=== PATIENT | female | born 1975 | race Caucasian/White ===

== ENCOUNTER 2017-05-23 08:18 | Emergency (ER) | payer BC, OTHER ==
[~2017-05-23] VITALS: Ht 165.1 cm; Wt 75.0 kg
[2017-05-23 08:19] VITALS: BP 149/93; PULSE 87; RESP 16; TEMP 98.7; O2SAT 98
[2017-05-23] MEDS ORDERED: PENI500T PO (08:40)
[2017-05-23] MEDS ORDERED: IBUP800T23 PO (08:40)
[2017-05-23] MEDS ORDERED: MAPA500T13 PO (08:40)
--- NOTE | 2017-05-23 08:44 | PD ---
HPI Chief Complaint: Oral / Dental Pain or Problem Time Seen by Provider: 08:36 Travel History International Travel<30 days: No Contact w/Intl Traveler<30days: No Traveled to known affect area: No History of Present Illness HPI 41-year-old female presents the emergency department with dental pain in the #12 tooth for the past 3 days. Patient states the pain radiates up into her right maxillary sinus. She has some mild swelling. No drainage. No fever chills or difficulty swallowing. Pain is currently in a 10. She has no known drug allergies. [facility] Past Medical History ?: Not Social History Alcohol Use: Yes Tobacco Use: Yes Substance Use: No Allergies-Medications (Allergen,Severity, Reaction): Coded Allergies: No Known Allergies (Unverified , 05/23/17) Review of Systems Except as stated in HPI: all other systems reviewed are Neg General / Constitutional: No: Fever Eyes: No: Visual changes HENT: Positive: Dental Difficulties, No: Headaches, Vertigo, Lightheadedness, Sore Throat, Rhinitis, Rhinorrhea, Congestion, Nosebleed, Neck Stiffness, Neck Pain, Gingival Bleeding, Ear Discharge, Earache Cardiovascular: No: Chest Pain or Discomfort Respiratory: No: Shortness of Breath Gastrointestinal: No: Abdominal Pain Genitourinary: No: Dysuria Musculoskeletal: No: Pain Skin: No Rash Neurologic: No: Weakness Psychiatric: No: Depression Endocrine: No: Polydipsia Hematologic/Lymphatic: No: Easy Bruising Physical Exam Narrative GENERAL: Patient appears in mild to moderate distress. SKIN: Warm and dry. Normal color. Normal turgor. No erythema. HEAD: Atraumatic. Normocephalic. EYES: Pupils equal and round. No scleral icterus. No injection or drainage. ENT: No nasal bleeding or discharge. Mucous membranes pink and moist. Patient has a bad #12 tooth with obvious deep caries. Patient has mild swelling to the right upper anterior jaw without obvious deep abscess. Pharynx is clear. Airway is patent. Uvula is midline. NECK: Trachea midline. Supple nontender without lymphadenopathy. CARDIOVASCULAR: Regular rate and rhythm. RESPIRATORY: No accessory muscle use. Clear to auscultation. Breath sounds equal bilaterally. MUSCULOSKELETAL: Extremities without clubbing, cyanosis, or edema. No obvious deformities. NEUROLOGICAL: Awake and alert. No obvious cranial nerve deficits. Motor grossly within normal limits. Five out of 5 muscle strength in the arms and legs. Normal speech. PSYCHIATRIC: Appropriate mood and affect; insight and judgment normal. Data Data Last Documented VS Vital Signs Date Time Temp Pulse Resp B/P (MAP) Pulse Ox O2 Delivery O2 Flow Rate FiO2 05/23/17 08:19 98.7 87 16 149/93 (111) 98 MDM Medical Decision Making Medical Screen Exam Complete: Yes Emergency Medical Condition: Yes Differential Diagnosis Dental caries. Dental abscess. Dental pain. Narrative Course Patient is treated with penicillin VK, 500 mg 4 times a day 10 days. Patient also given ibuprofen 800 mg 3 times daily with food #30. Patient also given acetaminophen 500 mg 2 tabs every 8 hours when necessary #60. Patient is given a list of the local dental resources. Patient can follow up if symptoms do not improve or worsen as needed. Diagnosis Primary Impression: Dental abscess Referrals: Dentist Patient Instructions: Dental Abscess (ED), General Instructions Additional Instructions: Patient is treated with penicillin VK, 500 mg 4 times a day 10 days. Patient also given ibuprofen 800 mg 3 times daily with food #30. Patient also given acetaminophen 500 mg 2 tabs every 8 hours when necessary #60. Patient is given a list of the local dental resources. Patient can follow up if symptoms do not improve or worsen as needed. Med/Other Pt SpecificInfo: Prescription(s) given Scripts Acetaminophen (Mapap Extra Strength) 500 Mg Tab 1000 MG PO Q8HR Y for PAIN, #60 TAB 0 Refills Prov: Jim Astudillo MD 05/23/17 Ibuprofen (Ibuprofen) 800 Mg Tab 800 MG PO Q8H Y for Pain/Inflammation, #30 TAB 0 Refills Prov: Jim Astudillo MD 05/23/17 Penicillin V Potassium (Penicillin V Potassium) 500 Mg Tab 500 MG PO Q6H for Infection for 10 Days, #40 TAB 0 Refills Prov: Jim Astudillo MD 05/23/17 Disposition: 01 DISCHARGE HOME Condition: Stable Zachary Cantrell May 23, 2017 08:44
== END 2017-05-23 08:50 | disposition home or self-care (01) ==
LOC: NEPK 08:18
DX: K04.7 Periapical abscess without sinus (principal)
CPT/HCPCS: 99283

== ENCOUNTER 2017-06-12 13:20 | Emergency (ER) | payer BC ==
[~2017-06-12] VITALS: Ht 165.1 cm; Wt 68.0 kg
[~2017-06-12 13:20] MED LIST: IBUP800T23 PO; MAPA500T13 PO; PENI500T PO
[2017-06-12 13:23] VITALS: BP 156/97; PULSE 83; RESP 14; TEMP 98.6; O2SAT 94
[2017-06-12] MEDS ORDERED: IBUP800T23 PO (15:10)
[2017-06-12] MEDS ORDERED: ULTR50TA5 PO (15:10)
[2017-06-12] MEDS ORDERED: CLIN1CAP5 PO (15:10)
--- NOTE | 2017-06-12 15:10 | PD ---
HPI Chief Complaint: Oral / Dental Pain or Problem Time Seen by Provider: 15:02 Travel History International Travel<30 days: No Contact w/Intl Traveler<30days: No Traveled to known affect area: No History of Present Illness HPI 41 year-old female presents to the emergency department for evaluation of left maxillary tooth pain. Patient states she has had a bad tooth for an extended amount of time. However pain has worsened acutely over the last 2-3 days. It radiates into her left cheek. She denies any new injury. No fever or chills. Patient is a constant, throbbing, 8 out of 10 pain. She has no other symptoms to report. PFSH Past Medical History Medical History: Denies Significant Hx ?: Unknown Social History Alcohol Use: Yes Tobacco Use: Yes Substance Use: No Allergies-Medications (Allergen,Severity, Reaction): Coded Allergies: No Known Allergies (Unverified , 05/23/17) Reported Meds & Prescriptions Reported Meds & Active Scripts Active Ultram (Tramadol HCl) 50 Mg Tab 50 Mg PO Q8H PRN Ibuprofen 800 Mg Tab 800 Mg PO Q8H PRN Clindamycin (Clindamycin HCl) 150 Mg Cap 300 Mg PO Q6H 10 Days Mapap Extra Strength (Acetaminophen) 500 Mg Tab 1,000 Mg PO Q8HR PRN Ibuprofen 800 Mg Tab 800 Mg PO Q8H PRN Penicillin V Potassium 500 Mg Tab 500 Mg PO Q6H 10 Days Review of Systems Except as stated in HPI: all other systems reviewed are Neg Physical Exam Narrative GENERAL: Well-nourished, well-developed email patient, in no acute distress SKIN: Focused skin assessment warm/dry. HEAD: Normocephalic. Tenderness elicited to palpation of the left maxillary sinus. No erythema or edema. EYES: No scleral icterus. No injection or drainage. DENTAL: No loose teeth. Generalized poor dentition. The left maxillary second molar is completely brown is significantly decayed. There is gingival erythema and edema. No appreciable abscess. No malocclusion. NECK: Supple, trachea midline. No JVD or lymphadenopathy. CARDIOVASCULAR: Regular rate and rhythm without murmurs, gallops, or rubs. RESPIRATORY: Breath sounds equal bilaterally. No accessory muscle use. MUSCULOSKELETAL: No cyanosis, or edema. BACK: Nontender without obvious deformity. No CVA tenderness. Data Data Last Documented VS Vital Signs Date Time Temp Pulse Resp B/P (MAP) Pulse Ox O2 Delivery O2 Flow Rate FiO2 06/12/17 15:25 06/12/17 13:23 98.6 83 14 94 Orders Orders Ed Discharge Order (06/12/17 15:10) MDM Medical Decision Making Medical Screen Exam Complete: Yes Emergency Medical Condition: Yes Medical Record Reviewed: Yes Differential Diagnosis Dental caries versus gingivitis versus pulpitis versus periodontal disease Narrative Course 41 year-old female presents to emergency department for evaluation of dental pain. Patient has generalized poor dentalgia. She does have a significantly decayed, brown left maxillary second molar. Patient will be started on oral antibiotics. She tells me she cannot take penicillin due to a previous reaction. She is counseled on care and encouraged follow-up with a dentist in a primary care provider. She agrees to return immediately with any acute worsening of symptoms. Diagnosis Primary Impression: Dentalgia Additional Impression: Gingivitis Referrals: Dentist Primary Care Physician Patient Instructions: Dental Abscess (ED), General Instructions Additional Instructions: Seek dental evaluation as soon as possible Follow-up with a primary care provider Return immediately with any acute worsening symptoms Med/Other Pt SpecificInfo: Prescription(s) given Scripts Tramadol (Ultram) 50 Mg Tab 50 MG PO Q8H Y for PAIN GREATER THAN 6, #20 TAB 0 Refills Prov: Yarelis Pugh 06/12/17 Ibuprofen (Ibuprofen) 800 Mg Tab 800 MG PO Q8H Y for Pain/Inflammation, #30 TAB 0 Refills Prov: Yarelis Pugh 06/12/17 Clindamycin (Clindamycin) 150 Mg Cap 300 MG PO Q6H for Infection for 10 Days, #80 CAP 0 Refills Prov: Yarelis Pugh 06/12/17 Disposition: 01 DISCHARGE HOME Condition: Stable Yarelis Puhg Jun 12, 2017 15:10
== END 2017-06-12 15:26 | disposition home or self-care (01) ==
LOC: NEPK 13:20
DX: K08.89 Other specified disorders of teeth and supporting structures (principal); K05.10 Chronic gingivitis, plaque induced; Z72.0 Tobacco use
CPT/HCPCS: 99284

== ENCOUNTER 2018-01-23 10:17 | Emergency (ER) | payer MEDICARE, OTHER ==
[~2018-01-23] VITALS: Ht 165.1 cm; Wt 75.0 kg
[~2018-01-23 10:17] MED LIST changes: +CLIN150C14 PO; +IBUP1TAB7 PO; -IBUP800T23 PO; +TRAM50 PO
[2018-01-23 10:22] VITALS: BP 174/101; PULSE 82; RESP 17; TEMP 98.4; O2SAT 99
--- NOTE | 2018-01-23 10:59 | PD ---
HPI Chief Complaint: Complaint Time Seen by Provider: 10:58 Travel History International Travel<30 days: No Contact w/Intl Traveler<30days: No Traveled to known affect area: No History of Present Illness HPI 42-year-old female with history of tobacco dependency, presents emergency department for evaluation of burning with urination, pelvic pressure, worsening over the last week. Patient denies any fever or chills. Denies any vaginal discharge or bleeding. States that she has had multiple UTIs in her health history and this feels consistent with that. She denies any hematuria. She has no trauma. Patient also states she has had cough and chest congestion worsening over the last 2-3 weeks. It is productive of yellow-green cough. She does smoke tobacco cigarettes. She denies any pain. She has no other symptoms to report. PFSH Past Medical History ?: Not Past Surgical History Hysterectomy: Yes Neurologic Surgery: Yes (NECK SURGERY) Social History Alcohol Use: Yes (OCC) Tobacco Use: Yes Substance Use: No Allergies-Medications (Allergen,Severity, Reaction): Coded Allergies: penicillin G (Verified Allergy, Unknown, 01/23/18) Reported Meds & Prescriptions Reported Meds & Active Scripts Active Proair Hfa 8.5 GM Inh (Albuterol Sulfate) 90 Mcg/Act Aer 2 Puff INH Q4HR PRN 108 mcg/actuation Prednisone 50 Mg Tab 50 Mg PO DAILY 5 Days Doxycycline Hyclate 100 Mg Cap 100 Mg PO BID Review of Systems Except as stated in HPI: all other systems reviewed are Neg Physical Exam Narrative GENERAL: Well-nourished female patient in no acute distress SKIN: Focused skin assessment warm/dry. HEAD: Atraumatic. Normocephalic. EYES: Pupils equal and round. No scleral icterus. No injection or drainage. ENT: No nasal bleeding or discharge. Mucous membranes pink and moist. NECK: Trachea midline. No JVD. CARDIOVASCULAR: Regular rate and rhythm. No murmur appreciated. RESPIRATORY: No accessory muscle use. Scattered rhonchi, intermittent inspiratory wheeze, to auscultation. Breath sounds equal bilaterally. GASTROINTESTINAL: Abdomen soft, non-tender, nondistended. Hepatic and splenic margins not palpable. MUSCULOSKELETAL: No obvious deformities. No clubbing. No cyanosis. No edema. NEUROLOGICAL: Awake and alert. No obvious cranial nerve deficits. Motor grossly within normal limits. Normal speech. PSYCHIATRIC: Appropriate mood and affect; insight and judgment normal. Data Data Last Documented VS Vital Signs Date Time Temp Pulse Resp B/P (MAP) Pulse Ox O2 Delivery O2 Flow Rate FiO2 01/23/18 10:22 98.4 82 17 174/101 (125) 99 Orders Orders Urinalysis - C+S If Indicated (01/23/18 11:01) Ed Urine Pregnancytest Poc (01/23/18 11:01) Chest, Single Ap (01/23/18 ) Dexamethasone Inj (Decadron Inj) (01/23/18 11:15) Albuterol-Ipratropium Neb (Duoneb Neb) (01/23/18 11:15) Ed Discharge Order (01/23/18 11:52) Labs Laboratory Tests Test 01/23/18 11:13 Urine Color YELLOW Urine Turbidity HAZY Urine pH 7.5 Urine Specific [place] 1.013 Urine Protein NEG mg/dL Urine Glucose (UA) NEG mg/dL Urine Ketones NEG mg/dL Urine Occult Blood NEG Urine Nitrite NEG Urine Bilirubin NEG Urine Urobilinogen LESS THAN 2.0 MG/DL Urine Leukocyte Esterase NEG Urine RBC 1 /hpf Urine WBC LESS THAN 1 /hpf Urine Squamous Epithelial Cells 12 /hpf Urine Bacteria FEW /hpf Urine Mucus FEW /lpf Microscopic Urinalysis Comment CULT NOT INDICATED MDM Medical Decision Making Medical Screen Exam Complete: Yes Emergency Medical Condition: Yes Medical Record Reviewed: Yes Differential Diagnosis Dysuria versus cystitis versus vaginitis versus urethritis Pneumonia versus influenza versus COPD versus COPD exacerbation versus bronchitis Narrative Course 42-year-old female presents emergency department for evaluation. Patient appears nontoxic. Her vital signs are stable. Patient is given DuoNeb and Decadron. She is counseled on smoking cessation. Laboratory Tests Test 01/23/18 11:13 Urine Color YELLOW Urine Turbidity HAZY Urine pH 7.5 Urine Specific [place] 1.013 Urine Protein NEG mg/dL Urine Glucose (UA) NEG mg/dL Urine Ketones NEG mg/dL Urine Occult Blood NEG Urine Nitrite NEG Urine Bilirubin NEG Urine Urobilinogen LESS THAN 2.0 MG/DL Urine Leukocyte Esterase NEG Urine RBC 1 /hpf Urine WBC LESS THAN 1 /hpf Urine Squamous Epithelial Cells 12 /hpf Urine Bacteria FEW /hpf Urine Mucus FEW /lpf Microscopic Urinalysis Comment CULT NOT INDICATED Last Impressions Chest X-Ray 01/23/18 0000 Signed Impressions: CONCLUSION: 1. No acute cardiopulmonary disease. Findings are reviewed. Discussed the patient my attending physician. She will be discharged home to follow-up with a primary care provider. She agrees to return immediately with acute worsening symptoms. Diagnosis Primary Impression: Dysuria Additional Impressions: COPD exacerbation Tobacco abuse Referrals: Primary Care Physician Patient Instructions: Cigarette Smoking and Your Health (GEN), General Instructions Additional Instructions: Stop smoking tobacco cigarettes Follow up with a primary care provider Ensure adequate hydration Return to ED with acute worsening of symptoms Med/Other Pt SpecificInfo: Prescription(s) given Scripts Albuterol 8.5 GM Inh (Proair Hfa 8.5 GM Inh) 90 Mcg/Act Aer 2 PUFF INH Q4HR Y for SHORTNESS OF BREATH, #1 INHALER 0 Refills 108 mcg/actuation Prov: Yarelis Pugh 01/23/18 Prednisone (Prednisone) 50 Mg Tab 50 MG PO DAILY for 5 Days, #5 TAB 0 Refills Prov: Yarelis Pugh 01/23/18 Doxycycline Hyclate (Doxycycline Hyclate) 100 Mg Cap 100 MG PO BID for Infection, #20 CAP 0 Refills Prov: Yarelis Pugh 01/23/18 Disposition: 01 DISCHARGE HOME Condition: Stable Yarelis Pugh January 23, 2018 10:59
[2018-01-23] MEDS ORDERED: DEXAMETHASONE SOD PHOS 4 MG/ML VIAL IM ONE (11:15)
[2018-01-23] MEDS ORDERED: RESP: ALBUTEROL 2.5 MG/IPRATROPIUM 0.5 MG NEB (SCH) NEB ONE (11:15)
--- NOTE | 2018-01-23 11:15 | RADRPT ---
EXAM DATE: 01/23/2018 11:12 AM EDT AGE/SEX: 42 years / Female INDICATIONS: Shortness of breath and cough. CLINICAL DATA: This is the patient's initial encounter. Patient reports that signs and symptoms have been present for 1 month and indicates a pain score of 0/10. MEDICAL/SURGICAL HISTORY: None. . cervical spine. COMPARISON: No prior [facility] exams available for comparison. FINDINGS: A single AP view of the chest demonstrates the lungs to be symmetrically aerated without evidence of mass, infiltrate or effusion. The cardiomediastinal contours are unremarkable. Fixation hardware in the cervicothoracic junction. Osseous structures are intact. CONCLUSION: 1. No acute cardiopulmonary disease. Electronically signed by: Santhosh Lundberg MD 01/23/2018 11:13 AM EDT
[2018-01-23 11:40] LABS: BACTERIA, URINE FEW /hpf; BILIRUBIN, URINE NEG (NEG); BLOOD, URINE NEG (NEG); GLUCOSE,URINE NEG (NEG); KETONE, URINE NEG (NEG); MUCUS URINE FEW /lpf (OCC); NITRITE,URINE NEG (NEG); PH, URINE 7.5 (5.0-8.5); SQUAMOUS EPITHELIAL CELL URINE 12 /hpf (0-5); URINE COLOR YELLOW (YELLW/STRAW); URINE LEUKOCYTE ESTERASE NEG (NEG)
[2018-01-23] MEDS ORDERED: DOXY100C PO (11:54)
[2018-01-23] MEDS ORDERED: ALBUAER3 INH (11:54)
[2018-01-23] MEDS ORDERED: PRED50 PO (11:54)
== END 2018-01-23 12:04 | disposition home or self-care (01) ==
LOC: NEPE 10:17
DX: R30.0 Dysuria (principal); J44.1 Chronic obstructive pulmonary disease with (acute) exacerbation; F17.210 Nicotine dependence, cigarettes, uncomplicated
CPT/HCPCS: 71045; 81001; 84703; 94664; 96372; 99284; J1100

== ENCOUNTER 2018-07-09 02:41 | Inpatient (IN) ==
--- NOTE | 2018-07-09 04:35 | ED ---
HPI General Chief complaint: Abdominal Pain Stated complaint: Abd pain/N/D/V Time Seen by Provider: 07/09/18 04:11 History of Present Illness HPI narrative: Patient is a 42 yo female presenting with abdominal pain, bloating, diarrhea, nausea, and vomiting. Patient reports that over the last 5-6 months she has been experiencing abdominal discomfort/distention and loose stools. Over the last 5 days her symptoms significantly worsened, with significant epigastric tenderness, nausea, vomiting, and frequent diarrhea associated with any food intake. Her pain is now 10/10 on the pain scale and associated with SOB due to discomfort. She notes that dairy is a trigger for her symptoms. She has seen some blood on the toilet paper when wiping but believes this to be due to irritation related to frequent bowel movements, and has not seen any blood mixed into her stool. Patient also reports some urinary discomfort but denies increased urgency or frequency. She denies history of chronic GI issues but has a family history of IBS. She has a history of anxiety though she has not been treated medically for this for several years. Related Data Home Medications Medication Instructions Recorded Confirmed gabapentin 300 mg PO TID 07/09/18 07/09/18 Allergies Allergy/AdvReac Type Severity Reaction Status Date / Time penicillin G Allergy Unknown Verified 01/23/18 10:22 Review of Systems Constitutional Reports chills, Denies fever(s) and Reports poor appetite Eyes Denies change in vision ENT Denies headache(s) and Denies nasal congestion Cardiovascular Denies chest pain Respiratory Reports dyspnea and Reports wheezing Gastrointestinal Denies abdominal pain, Reports bloating, Reports change in stool character, Reports cramping, Reports diarrhea, Reports loose stools, Reports nausea and Reports vomiting Genitourinary Denies difficulty voiding and Reports dysuria Musculoskeletal Denies myalgias Integumentary/Breasts Denies rash Neurologic Denies headache(s) Psychiatric Denies depression Endocrine Denies polyuria Hematologic/Lymphatic Denies easy bruising PMF Medical History Medical History Chronic back pain (Acute) H/O: hysterectomy (Acute) Patient denies medical problems (Acute) Surgical History Surgical History History of cholecystectomy (Acute) Social History Social History Substance History: No History of Abuse and Active Abuse Second Hand Smoke Exposure: No Smoking Status: Current every day smoker Tobacco Type: Cigarettes Packs Per Day: 0.5 Cigarettes Per Day: 10.0 How Often Do You Have a Drink Containing Alcohol: 4 or more times a week Recent Travel in [facility] within the Last 8 Weeks: No Recent Out of Country Travel within the Last 8 Weeks: No Substance Abuse Detail Marijuana: Substance Use Status: Active Route Used Substance Abuse: Inhalation Reason for Use: Calm Down and Get High Immunization History Tetanus Immunization: Unsure Exam Const General: cooperative, well developed and anxious Nutritional Appearance: well nourished Orientation: alert, awake and oriented x3 HENMT Head: normocephalic and atraumatic Nose: no nasal discharge and no epistaxis Mouth: moist mucous membranes Eyes Sclera: normal sclerae Pupils: PERRL Neck Neck: trachea midline and no JVD Resp Effort & Inspection: no use of accessory muscles Auscultation: wheezes scattered wheezes Cardio Rate: regular rate Rhythm: regular rhythm Heart Sounds: no murmurs GI Inspection: non-distended Palpation: soft, no hepatosplenomegaly, no guarding, not rigid and tender in the epigastrum; not in the LLQ, not in the RLQ, not in the LUQ, not in the RUQ, not at McBurney's point, not suprapubicly, Davison's sign negative and with no rebound tenderness Auscultation: normal bowel sounds Skin General: dry skin (warm) Neuro General: alert, awake, oriented x3 and other (Grossly nonfocal.) Speech: speech normal Motor: no movement abnormalities noted Extrem General: normal to inspection, no calf tenderness, no clubbing, no cyanosis and no edema Psych Mood: anxious mood Affect: anxious affect Judgment: judgment good Course Initial Documented Vital Signs Temperature 98 F 07/09/18 03:29 Pulse Rate 82 07/09/18 03:29 Respiratory Rate 16 07/09/18 03:29 Blood Pressure 168/90 H 07/09/18 03:29 Pulse Oximetry 98 07/09/18 03:29 Last Documented Vital Signs Temperature 98.3 F 07/09/18 04:12 Pulse Rate 77 07/09/18 06:24 Respiratory Rate 16 07/09/18 06:24 Blood Pressure 143/94 H 07/09/18 06:24 Pulse Oximetry 99 07/09/18 06:24 Medical Decision Making [facility] Narrative Medical decision making narrative: I, Dr. Dorman, have reviewed the medical student's documentation, and I am in agreement, met with the patient face to face, made the diagnosis, and the medical decision making was done by me. The patient was initially evaluated by Yamilex, the [facility]. Please see their complete history and physical. *My assessment and Findings: The patient presents with a history of abdominal pain that the patient reports has been present for the last 5-6 months. The patient reports that over the last 5 days his symptoms have worsened. She reports that she has had 5-6 episodes of diarrhea daily. She reports occasionally having vomiting. She reports that she last vomited yesterday. The patient denies ever having colonoscopy previously. The patient reports a recent history of daily alcohol intake of 1 pint of liquor daily. She has been reportedly drinking heavily since moving to the area and not establishing with a physician for her chronic pain. She reports that she is self-medicating for her chronic back pain. During the course of the patient's emergency department visit, the patient's history, examination, and differential diagnosis were reviewed with the patient. The patient was placed on a bus monitor with oximetry and frequent blood pressure monitoring. The patient had IV access obtained and blood work sent for analysis. The patient was initially provided DuoNeb x1, however after the DuoNeb was started the patient reported having increased anxiety and developed a panic attack. The patient was given Ativan 1 mg IV. The patient was provided Zofran 4 mg IV, normal saline 1 L IV fluid bolus which after lactic acid was noted to be elevated was repeated x1. The patient's diagnostic studies were reviewed and remarkable for A white count of 10.5, hemoglobin 16.3, platelets 270 with neutrophils 83.6, PT 12.4, INR 1.2 , PTT 29.3, chemistry is remarkable for a lactic acid of 2.4 which will be repeated after IV fluids, calcium 8.3, total bilirubin 1.1, magnesium 1.7, AST 681, ALT 379, alk phos 122, troponin I is less than 0.02, C-reactive protein is less than 0.29, lipase within normal limits at 203. Urinalysis shows large leukocyte esterase many bacteria small occult blood positive nitrate. The patient was given Rocephin 1 g IV. Chest x-ray revealed prominent hepatic steatosis, no other acute findings in the abdomen and pelvis. The patient is status post cholecystectomy. The patient was reexamined and was reportedly feeling improved. The patient will be started on oral rehydration therapy. Differential Diagnosis Differential Diagnosis: gastritis, gastroenteritis, pancreatitis, cholecystitis , irritable bowel syndrome, inflammatory bowel disease, urinary tract infection , pneumonia Lab Data Result diagrams: 07/09/18 04:30 07/09/18 04:30 POC Results POC Urine Results Negative Lab Results 07/09/18 07/09/18 07/09/18 Range/Units 04:18 04:30 04:30 WBC 10.5 (4.0-11.0) th/mm3 RBC 5.08 (4.00-5.30) mil/mm3 Hgb 16.3 H (11.6-15.3) gm/dL Hct 47.8 H (35.0-46.0) % MCV 94.2 (80.0-100.0) fL MCH 32.0 (27.0-34.0) pg MCHC 34.0 (32.0-36.0) % RDW 13.1 (11.6-17.2) % Plt Count 270 (150-450) th/mm3 MPV 9.2 (7.0-11.0) fL Neut % (Auto) 83.6 H (16.0-70.0) % Lymph % (Auto) 12.6 (9.0-44.0) % [place] % (Auto) 2.9 (0.0-8.0) % Eos % (Auto) 0.2 (0.0-4.0) % Baso % (Auto) 0.7 (0.0-2.0) % Neut # (Auto) 8.8 H (1.8-7.7) th/mm3 Lymph # (Auto) 1.3 (1.0-4.8) th/mm3 [place] # (Auto) 0.3 (0.0-0.9) th/mm3 Eos # (Auto) 0.0 (0.0-0.4) th/mm3 Baso # (Auto) 0.1 (0.0-0.2) th/mm3 WBC Differential . Differential Comment Auto diff final ESR (0-20) mm/hr PT 12.4 H (9.8-11.6) sec INR 1.2 Ratio APTT 29.3 (23.4-31.7) sec Sodium (136-145) meq/L Potassium (3.5-5.1) meq/L Chloride (98-107) meq/L Carbon Dioxide (21.0-32.0) meq/L Anion Gap (5-15) meq/L BUN (7-18) mg/dL Creatinine (0.50-1.00) mg/dL Estimated GFR (>89) mL/min POC Glucose 102 (68-110) mg/dl Random Glucose (74-106) mg/dL Lactic Acid (0.4-2.0) mmol/L Calcium (8.5-10.1) mg/dL Magnesium (1.5-2.5) mg/dL Total Bilirubin (0.2-1.0) mg/dL AST (15-37) U/L ALT (10-53) U/L Alkaline Phosphatase (45-117) U/L Troponin I (0.02-0.05) ng/mL C-Reactive Protein (0.00-0.30) mg/dL Total Protein (6.4-8.2) g/dL Albumin (3.4-5.0) g/dL Lipase (73-393) U/L Urine Color (Yellw/Straw) Urine Clarity (Clear) Urine pH (5.0-8.5) Ur Specific [place] (1.002-1.035) Urine Protein (Neg-Trace) mg/dL Urine Glucose (UA) (Negative) mg/dL Urine Ketones (Negative) mg/dL Urine Occult Blood (Negative) Urine Nitrate (Negative) Urine Bilirubin (Negative) Urine Urobilinogen (Less than 2) mg/dL Ur Leukocyte Esterase (Negative) Urine RBC (0-3) /hpf Urine WBC (0-5) /hpf Ur Squamous Epith Cells (0-5) /hpf Urine Bacteria (None) /hpf Urine Mucus (Occasional) /lpf Urine Yeast (None) /hpf Micro UA Comment Ur Microscopic Review Urine Culture Comments 07/09/18 07/09/18 07/09/18 Range/Units 04:30 04:30 05:00 WBC (4.0-11.0) th/mm3 RBC (4.00-5.30) mil/mm3 Hgb (11.6-15.3) gm/dL Hct (35.0-46.0) % MCV (80.0-100.0) fL MCH (27.0-34.0) pg MCHC (32.0-36.0) % RDW (11.6-17.2) % Plt Count (150-450) th/mm3 MPV (7.0-11.0) fL Neut % (Auto) (16.0-70.0) % Lymph % (Auto) (9.0-44.0) % [place] % (Auto) (0.0-8.0) % Eos % (Auto) (0.0-4.0) % Baso % (Auto) (0.0-2.0) % Neut # (Auto) (1.8-7.7) th/mm3 Lymph # (Auto) (1.0-4.8) th/mm3 [place] # (Auto) (0.0-0.9) th/mm3 Eos # (Auto) (0.0-0.4) th/mm3 Baso # (Auto) (0.0-0.2) th/mm3 WBC Differential Differential Comment ESR 1 (0-20) mm/hr PT (9.8-11.6) sec INR Ratio APTT (23.4-31.7) sec Sodium 137 (136-145) meq/L Potassium 3.9 (3.5-5.1) meq/L Chloride 100 (98-107) meq/L Carbon Dioxide 25.5 (21.0-32.0) meq/L Anion Gap 12 (5-15) meq/L BUN 11 (7-18) mg/dL Creatinine 0.69 (0.50-1.00) mg/dL Estimated GFR Greater than 89 (>89) mL/min POC Glucose (68-110) mg/dl Random Glucose 100 (74-106) mg/dL Lactic Acid 2.4 H (0.4-2.0) mmol/L Calcium 8.3 L (8.5-10.1) mg/dL Magnesium 1.7 (1.5-2.5) mg/dL Total Bilirubin 1.1 H (0.2-1.0) mg/dL AST 681 H (15-37) U/L ALT 379 H (10-53) U/L Alkaline Phosphatase 122 H (45-117) U/L Troponin I Less than 0.02 L (0.02-0.05) ng/mL C-Reactive Protein Less than 0.29 (0.00-0.30) mg/dL Total Protein 7.2 (6.4-8.2) g/dL Albumin 3.9 (3.4-5.0) g/dL Lipase 203 (73-393) U/L Urine Color (Yellw/Straw) Urine Clarity (Clear) Urine pH (5.0-8.5) Ur Specific [place] (1.002-1.035) Urine Protein (Neg-Trace) mg/dL Urine Glucose (UA) (Negative) mg/dL Urine Ketones (Negative) mg/dL Urine Occult Blood (Negative) Urine Nitrate (Negative) Urine Bilirubin (Negative) Urine Urobilinogen (Less than 2) mg/dL Ur Leukocyte Esterase (Negative) Urine RBC (0-3) /hpf Urine WBC (0-5) /hpf Ur Squamous Epith Cells (0-5) /hpf Urine Bacteria (None) /hpf Urine Mucus (Occasional) /lpf Urine Yeast (None) /hpf Micro UA Comment Ur Microscopic Review Urine Culture Comments 07/09/18 07/09/18 Range/Units 05:00 06:40 WBC (4.0-11.0) th/mm3 RBC (4.00-5.30) mil/mm3 Hgb (11.6-15.3) gm/dL Hct (35.0-46.0) % MCV (80.0-100.0) fL MCH (27.0-34.0) pg MCHC (32.0-36.0) % RDW (11.6-17.2) % Plt Count (150-450) th/mm3 MPV (7.0-11.0) fL Neut % (Auto) (16.0-70.0) % Lymph % (Auto) (9.0-44.0) % [place] % (Auto) (0.0-8.0) % Eos % (Auto) (0.0-4.0) % Baso % (Auto) (0.0-2.0) % Neut # (Auto) (1.8-7.7) th/mm3 Lymph # (Auto) (1.0-4.8) th/mm3 [place] # (Auto) (0.0-0.9) th/mm3 Eos # (Auto) (0.0-0.4) th/mm3 Baso # (Auto) (0.0-0.2) th/mm3 WBC Differential Differential Comment ESR (0-20) mm/hr PT (9.8-11.6) sec INR Ratio APTT (23.4-31.7) sec Sodium (136-145) meq/L Potassium (3.5-5.1) meq/L Chloride (98-107) meq/L Carbon Dioxide (21.0-32.0) meq/L Anion Gap (5-15) meq/L BUN (7-18) mg/dL Creatinine (0.50-1.00) mg/dL Estimated GFR (>89) mL/min POC Glucose (68-110) mg/dl Random Glucose (74-106) mg/dL Lactic Acid 2.6 H (0.4-2.0) mmol/L Calcium (8.5-10.1) mg/dL Magnesium (1.5-2.5) mg/dL Total Bilirubin (0.2-1.0) mg/dL AST (15-37) U/L ALT (10-53) U/L Alkaline Phosphatase (45-117) U/L Troponin I (0.02-0.05) ng/mL C-Reactive Protein (0.00-0.30) mg/dL Total Protein (6.4-8.2) g/dL Albumin (3.4-5.0) g/dL Lipase (73-393) U/L Urine Color Yellow (Yellw/Straw) Urine Clarity Cloudy H (Clear) Urine pH 6.0 (5.0-8.5) Ur Specific [place] 1.006 (1.002-1.035) Urine Protein Negative (Neg-Trace) mg/dL Urine Glucose (UA) Negative (Negative) mg/dL Urine Ketones Negative (Negative) mg/dL Urine Occult Blood Small H (Negative) Urine Nitrate Positive H (Negative) Urine Bilirubin Negative (Negative) Urine Urobilinogen Less than 2 (Less than 2) mg/dL Ur Leukocyte Esterase Large H (Negative) Urine RBC 2 (0-3) /hpf Urine WBC 5 (0-5) /hpf Ur Squamous Epith Cells 10 (0-5) /hpf Urine Bacteria Many H (None) /hpf Urine Mucus Few H (Occasional) /lpf Urine Yeast Few H (None) /hpf Micro UA Comment Culture indicated Ur Microscopic Review Not Reportable Urine Culture Comments Culture indicated Imaging Data Radiologist's impression: Abdomen/Pelvis CT 07/09/18 04:44 CONCLUSION: 1. Prominent hepatic steatosis. 2. No acute findings in the abdomen and pelvis. Chest X-Ray 07/09/18 06:39 CONCLUSION: No acute cardiopulmonary disease identified. Discharge Plan Physicians Team ED Provider: Nicole Dorman Primary Care Provider: UNKNOWN, Rxs /Orders / Referrals /Forms Prescriptions: No Action gabapentin 300 mg Capsule 300 mg PO TID RF: 0 Status ED Status: With Doctor
[2018-07-09] MEDS ORDERED: Sod Chloride 0.9% Inj 1,000 ML IV.SIG ONE ×2 (05:00→06:06)
[2018-07-09 05:12] LABS: Baso # (Auto) 0.1 th/mm3 (0.0-0.2); Baso % (Auto) 0.7 % (0.0-2.0); Eos % (Auto) 0.2 % (0.0-4.0); Hematocrit 47.8 % (35.0-46.0); Hemoglobin 16.3 gm/dL (11.6-15.3); Lymph # (Auto) 1.3 th/mm3 (1.0-4.8); Lymph % (Auto) 12.6 % (9.0-44.0); Mean Corpuscular Volume 94.2 fL (80.0-100.0); Mean Platelet Volume 9.2 fL (7.0-11.0); Mono # (Auto) 0.3 th/mm3 (0.0-0.9); Mono % (Auto) 2.9 % (0.0-8.0); Neut # (Auto) 8.8 th/mm3 (1.8-7.7); Neut % (Auto) 83.6 % (16.0-70.0); Platelet Count 270 th/mm3 (150-450); Red Blood Count 5.08 mil/mm3 (4.00-5.30); Red Cell Distribution Width 13.1 % (11.6-17.2); White Blood Count 10.5 th/mm3 (4.0-11.0)
[2018-07-09 05:23] LABS: Activated Partial Thrombo Time 29.3 sec (23.4-31.7); INR 1.2 Ratio; Prothrombin Time 12.4 sec (9.8-11.6)
[2018-07-09 05:25] LABS: Bacteria,Urine Many /hpf; Bilirubin,Urine Negative (Negative); Clarity,Urine Cloudy (Clear); Color,Urine Yellow (Yellw/Straw); Glucose,Urine (UA) Negative (Negative); Leukocyte Esterase,Urine Large (Negative); Mucus,Urine Few /lpf (Occasional); Nitrite,Urine Positive (Negative); Specific Gravity,Urine 1.006 (1.002-1.035); Squamous Epithelial Cell,Urine 10 /hpf (0-5)
[2018-07-09 05:41] LABS: Alkaline Phosphatase 122 U/L (45-117); Total Protein 7.2 g/dL (6.4-8.2)
[2018-07-09 05:54] LABS: Alanine Aminotransferase 379 U/L (10-53); Albumin 3.9 g/dL (3.4-5.0); Anion Gap 12 meq/L (5-15); Aspartate Aminotransferase 681 U/L (15-37); Blood Urea Nitrogen 11 mg/dL (7-18); Calcium 8.3 mg/dL (8.5-10.1); Carbon Dioxide 25.5 meq/L (21.0-32.0); Chloride 100 meq/L (98-107); Glomerular Filtration Rate Greater Than 89 mL/min (>89); Glucose,Random 100 mg/dL (74-106); Lipase 203 U/L (73-393); Magnesium 1.7 mg/dL (1.5-2.5); Sodium 137 meq/L (136-145)
[2018-07-09 05:55] LABS: Potassium 3.9 meq/L (3.5-5.1)
--- NOTE | 2018-07-09 06:27 | CT ---
EXAM DATE: 07/09/2018 6:15 AM EST AGE/SEX: 42 years / Female INDICATIONS: Abdominal pain. CLINICAL DATA: This is the patient's initial encounter. Patient reports that signs and symptoms have been present for 1 day and indicates a pain score of 7/10. MEDICAL/SURGICAL HISTORY: None. Hysterectomy. ORAL CONTRAST: No oral contrast ingested. RADIATION DOSE: 6.91 CTDI (mGy) COMPARISON: . TECHNIQUE: Multiple contiguous axial images were obtained through the abdomen and pelvis following b olus infusion of 96 ml Omnipaque 350 (iohexol) nonionic water-soluble contrast as a single exam dos e. No oral contrast ingested. Using automated exposure control and adjustment of the mA and/or kV ac cording to patient size, radiation dose was kept as low as reasonably achievable to obtain optimal di agnostic quality images. DICOM format image data is available electronically for review and comparis on. FINDINGS: Lower Lungs: The visualized lower lungs are clear. Liver: Moderate severity diffuse hypodensity of the liver indicating hepatic steatosis. Status post c holecystectomy. Spleen: Homogeneous density without enlargement. Pancreas: Unremarkable without mass or calcification. Kidneys: Normal in size and shape. No evidence of mass or hydronephrosis. Adrenal Glands: Unremarkable. Aorta: The aorta and proximal iliac vessels are grossly unremarkable without aneurysmal dilation. Bowel/Mesentery: No evidence of bowel dilatation. No free air or free fluid. Appendix within normal limits. Abdominal Wall: Intact. Retroperitoneum: No evidence of adenopathy in the retrocrural, para-aortic, or deep pelvic regions. Bladder: Contours are smooth. Reproductive Organs: No abnormal masses or calcifications seen. Inguinal: The inguinal region is unremarkable without evidence of adenopathy. Bony Structures: Unremarkable. CONCLUSION: 1. Prominent hepatic steatosis. 2. No acute findings in the abdomen and pelvis. Electronically signed by: Negrito Solomon MD 07/09/2018 6:25 AM EST
--- NOTE | 2018-07-09 06:56 | XR ---
EXAM DATE: 07/09/2018 6:52 AM EST AGE/SEX: 42 years / Female INDICATIONS: Abdominal pain. CLINICAL DATA: This is the patient's initial encounter. Patient reports that signs and symptoms have been present for 1 day and indicates a pain score of 0/10. MEDICAL/SURGICAL HISTORY: None. Fusion, cervical. Hysterectomy. COMPARISON: No prior exams available for comparison. FINDINGS: Single AP view of the chest. The lungs are clear. Cardiomediastinal silhouette within nor mal limits. No evidence of pleural effusion or pneumothorax. CONCLUSION: No acute cardiopulmonary disease identified. Electronically signed by: Negrito Solomon MD 07/09/2018 6:54 AM EST
[2018-07-09] MEDS ORDERED: Morphine Inj 4 MG/ML Vial IV.PUSH ONE (07:55)
[2018-07-09] MEDS ORDERED: Acetaminophen 325 MG Tablet PO PRN (08:32)
[2018-07-09] MEDS ORDERED: Haloperidol Inj 5 MG/ML Ampul IV.PUSH PRN (08:36)
--- NOTE | 2018-07-09 08:47 | P.HP ---
History of Present Illness Primary Care Physician: UNKNOWN History of Present Illness: 42-year-old female presented to the ED for evaluation of worsening abdominal pain and diarrhea 5-6 times a day. Patient states over the past 5-6 months after receiving treatment with various antibiotics she has been having consistently abdominal distention and diarrhea. However, patient states she has not receiving antibiotics recently. She also reports urinary frequency, dysuria. She denies any febrile episode. Patient's admits drinking 1 pint of alcohol daily, and smokes half a pack of cigarettes. In the ED, CT abdomen revealed hepatic steatosis otherwise unremarkable. Abnormal lab include elevated lactic acid. She denies any GI bleed. Inpatient Certification: I certify that the inpatient services were ordered in accordance with Medicare regulations governing the order. This includes certification that hospital inpatient services are reasonable and necessary and in the case of services not specified as inpatient-only under 42 CFR 419.22(n), that they are appropriately provided as inpatient services in accordance to with the 2-midnight benchmark under 43 CFR 412.3(e) Estimated Total Length of Stay (Days): 2 Plans for Post Hospital Care: Other Review of Systems All other systems reviewed negative except as stated in HPI PMFSH - History History Provided By: Patient - Medical History Medical History: Medical History (Last Updated 07/09/18 @ 07:20 by Nicole Dorman MD) Chronic back pain H/O: hysterectomy Patient denies medical problems - Surgical History Surgical History: Surgical History (Last Updated 07/09/18 @ 07:21 by Nicole Dorman MD) History of cholecystectomy - Family History Family History: Family History (Last Updated 07/09/18 @ 08:40 by Cm Rios MD) Other CAD (coronary artery disease) Diabetes Hypertension - Tobacco History Second Hand Smoke Exposure: No Tobacco Use In Past 30 Days: Yes Smoking Status: Current every day smoker Tobacco Type: Cigarettes Packs Per Day: 0.5 Cigarettes Per Day: 10.0 - Alcohol History How Often Do You Have a Drink Containing Alcohol: 4 or more times a week - Substance Use History Substance History: No History of Abuse, Active Abuse - Substance Use Type Marijuana Status: Active Route Used: Inhalation Reason for Use: Calm Down, Get High - Travel History Recent Travel in the [place] Within the Last 8 Weeks: No Recent Travel Out of the Country Within the Last 8 Weeks: No - Immunization History Tetanus Immunization: Unsure Medications and Allergies Active Medications: Active Medications Acetaminophen (Tylenol) 650 mg PO Q4H PRN PRN Reason: Temp > 100.4 Al Hydroxide/Mg Hydroxide (Milk Of La Liq) 30 ml PO Q12H PRN PRN Reason: Mild Constipation Flumazenil (Romazecon Inj) 0.2 mg IV.PUSH Q1M PRN PRN Reason: OVERSEDATION Gabapentin (Neurontin) 300 mg PO TID DARELL Haloperidol Lactate (Haldol Inj) 1 mg IV.PUSH Q15M PRN PRN Reason: for severe agitation Sodium Chloride (Ns Inj) 1,000 mls @ 100 mls/hr IV.CONT .Q10H DARELL Ceftriaxone Sodium 1,000 mg/ (Sodium Chloride) 100 mls @ 200 mls/hr IV.SIG Q24H DARELL Lactobacillus Acidophilus (Lactinex) 1 tab PO BID DARELL Lorazepam (Ativan) 1 mg PO Q4H PRN PRN Reason: for CIWA 8-10 Lorazepam (Ativan) 2 mg PO Q2H PRN PRN Reason: for CIWA 11-14 Lorazepam (Ativan Inj) 2 mg IV.PUSH Q2H PRN PRN Reason: for CIWA 11-14 Lorazepam (Ativan Inj) 2 mg IV.PUSH Q1H PRN PRN Reason: for CIWA 15-20 Lorazepam (Ativan Inj) 2 mg IV.PUSH Q15M PRN PRN Reason: for CIWA > 20 Lorazepam (Ativan Inj) 1 mg IV.PUSH Q4H PRN PRN Reason: for CIWA 8-10 Nicotine (Habitrol 21 Mg Patch.24 Hr) 1 patch T-DERMAL DAILY [facility] Ondansetron HCl (Zofran Inj) 4 mg IV.PUSH Q6H PRN PRN Reason: NAUSEA OR VOMITING Patch Removal (Remove Old Patch) 1 each T-[facility]MAL [facility] Sodium Chloride (Ns Flush) 2 ml IV.FLUSH PRN PRN PRN Reason: FLUSH AFTER USING IV ACCESS Thiamine HCl (Vitamin B1) 100 mg PO BID [facility] Allergies Allergy/AdvReac Type Severity Reaction Status Date / Time penicillin G Allergy Unknown Verified 01/23/18 10:22 Home Medications Medication Instructions Recorded Confirmed Type gabapentin 300 mg PO TID 07/09/18 07/09/18 History Exam Vital signs: Vital Signs 07/09/18 03:29 07/09/18 04:12 07/09/18 05:09 Temperature 98 F 98.3 F Pulse Rate 82 94 H Respiratory Rate 16 22 Blood Pressure 168/90 H 173/129 H Pulse Oximetry 98 97 97 07/09/18 05:25 07/09/18 06:24 07/09/18 07:26 Temperature Pulse Rate 92 H 77 84 Respiratory Rate 18 16 17 Blood Pressure 143/94 H 158/95 H Pulse Oximetry 97 99 96 07/09/18 08:11 Temperature Pulse Rate 87 Respiratory Rate 17 Blood Pressure 149/77 H Pulse Oximetry Intake & Output 07/08/18 07/09/18 07/09/18 18:59 06:59 18:59 Intake Total 1100 / 1100 Balance 1100 / 1100 Weight 74.843 kg Intake: IV 1100 / 1100 NS Inj 1,000 ML @ Wide Open IV. 1000 / 1000 SIG BOLUS ONE Rx#:[id number] Rocephin Inj 1,000 MG In NS Inj 100 / 100 100 ML @ 200 mls/hr IV.SIG ONCE ONE Rx#:[id number] Narrative: GENERAL: NAD SKIN: Warm and dry. HEAD: Atraumatic. Normocephalic. EYES: Pupils equal and round. No scleral icterus. No injection or drainage. ENT: No nasal bleeding or discharge. Mucous membranes pink and moist. NECK: Trachea midline. No JVD. CARDIOVASCULAR: Regular rate and rhythm. RESPIRATORY: No accessory muscle use. Clear to auscultation. Breath sounds equal bilaterally. GASTROINTESTINAL: Abdomen soft, mildly tender, nondistended. Hepatic and splenic margins not palpable. +BS MUSCULOSKELETAL: Extremities without clubbing, cyanosis, or edema. No obvious deformities. NEUROLOGICAL: Awake and alert. No obvious cranial nerve deficits. Motor grossly within normal limits. Five out of 5 muscle strength in the arms and legs. Normal speech. PSYCHIATRIC: Appropriate mood and affect; insight and judgment normal. Results - Labs CBC & Chem 7: 07/09/18 04:30 07/09/18 04:30 Labs: Laboratory Results - last 24 hr 07/09/18 07/09/18 07/09/18 04:18 04:30 04:30 WBC 10.5 RBC 5.08 Hgb 16.3 H Hct 47.8 H MCV 94.2 MCH 32.0 MCHC 34.0 RDW 13.1 Plt Count 270 MPV 9.2 Neut % (Auto) 83.6 H Lymph % (Auto) 12.6 [place] % (Auto) 2.9 Eos % (Auto) 0.2 Baso % (Auto) 0.7 Neut # (Auto) 8.8 H Lymph # (Auto) 1.3 [place] # (Auto) 0.3 Eos # (Auto) 0.0 Baso # (Auto) 0.1 WBC Differential . Differential Comment Auto diff final ESR PT 12.4 H INR 1.2 APTT 29.3 Sodium Potassium Chloride Carbon Dioxide Anion Gap BUN Creatinine Estimated GFR POC Glucose 102 Random Glucose Lactic Acid Calcium Magnesium Total Bilirubin AST ALT Alkaline Phosphatase Troponin I C-Reactive Protein Total Protein Albumin Lipase Urine Color Urine Clarity Urine pH Ur Specific [place] Urine Protein Urine Glucose (UA) Urine Ketones Urine Occult Blood Urine Nitrate Urine Bilirubin Urine Urobilinogen Ur Leukocyte Esterase Urine RBC Urine WBC Ur Squamous Epith Cells Urine Bacteria Urine Mucus Urine Yeast Micro UA Comment Ur Microscopic Review Urine Culture Comments 07/09/18 07/09/18 07/09/18 04:30 04:30 05:00 WBC RBC Hgb Hct MCV MCH MCHC RDW Plt Count MPV Neut % (Auto) Lymph % (Auto) [place] % (Auto) Eos % (Auto) Baso % (Auto) Neut # (Auto) Lymph # (Auto) [place] # (Auto) Eos # (Auto) Baso # (Auto) WBC Differential Differential Comment ESR 1 PT INR APTT Sodium 137 Potassium 3.9 Chloride 100 Carbon Dioxide 25.5 Anion Gap 12 BUN 11 Creatinine 0.69 Estimated GFR Greater than 89 POC Glucose Random Glucose 100 Lactic Acid 2.4 H Calcium 8.3 L Magnesium 1.7 Total Bilirubin 1.1 H AST 681 H ALT 379 H Alkaline Phosphatase 122 H Troponin I Less than 0.02 L C-Reactive Protein Less than 0.29 Total Protein 7.2 Albumin 3.9 Lipase 203 Urine Color Urine Clarity Urine pH Ur Specific [place] Urine Protein Urine Glucose (UA) Urine Ketones Urine Occult Blood Urine Nitrate Urine Bilirubin Urine Urobilinogen Ur Leukocyte Esterase Urine RBC Urine WBC Ur Squamous Epith Cells Urine Bacteria Urine Mucus Urine Yeast Micro UA Comment Ur Microscopic Review Urine Culture Comments 07/09/18 07/09/18 05:00 06:40 WBC RBC Hgb Hct MCV MCH MCHC RDW Plt Count MPV Neut % (Auto) Lymph % (Auto) [place] % (Auto) Eos % (Auto) Baso % (Auto) Neut # (Auto) Lymph # (Auto) [place] # (Auto) Eos # (Auto) Baso # (Auto) WBC Differential Differential Comment ESR PT INR APTT Sodium Potassium Chloride Carbon Dioxide Anion Gap BUN Creatinine Estimated GFR POC Glucose Random Glucose Lactic Acid 2.6 H Calcium Magnesium Total Bilirubin AST ALT Alkaline Phosphatase Troponin I C-Reactive Protein Total Protein Albumin Lipase Urine Color Yellow Urine Clarity Cloudy H Urine pH 6.0 Ur Specific [place] 1.006 Urine Protein Negative Urine Glucose (UA) Negative Urine Ketones Negative Urine Occult Blood Small H Urine Nitrate Positive H Urine Bilirubin Negative Urine Urobilinogen Less than 2 Ur Leukocyte Esterase Large H Urine RBC 2 Urine WBC 5 Ur Squamous Epith Cells 10 Urine Bacteria Many H Urine Mucus Few H Urine Yeast Few H Micro UA Comment Culture indicated Ur Microscopic Review Not Reportable Urine Culture Comments Culture indicated - Imaging Impressions Abdomen/Pelvis CT 07/09/18 04:44 CONCLUSION: 1. Prominent hepatic steatosis. 2. No acute findings in the abdomen and pelvis. Chest X-Ray 07/09/18 06:39 CONCLUSION: No acute cardiopulmonary disease identified. Caprini VTE Risk Assessment Caprini VTE Risk Assessment: No/Low Risk (score <= 1) Caprini Risk Assessment Model: Point Value = 1 Point Value = 2 Point Value = 3 Point Value = 5 Age 41-60 Minor surgery BMI > 25 kg/m2 Swollen legs Varicose veins or History of unexplained or recurrent spontaneous Oral contraceptives or hormone replacement Sepsis (< 1 month) Serious lung disease, including pneumonia (< 1 month) Abnormal pulmonary function Acute myocardial infarction Congestive heart failure (< 1 month) History of inflammatory bowel disease Medical patient at bed rest Age 61-74 Arthroscopic surgery Major open surgery (> 45 min) Laparoscopic surgery (> 45 min) Malignancy Confined to bed (> 72 hours) Immobilizing plaster cast Central venous access Age >= 75 History of VTE Family history of VTE Factor V Leiden Prothrombin [id number] Lupus anticoagulant Anticardiolipin antibodies Elevated serum homocysteine Heparin-induced thrombocytopenia Other congenital or acquired thrombophilia Stroke (< 1 month) Elective arthroplasty Hip, pelvis, or leg fracture Acute spinal cord injury (< 1 month) Prophylaxis Regimen: Total Risk Factor Score Risk Level Prophylaxis Regimen 0-1 Low Early ambulation 2 Moderate Order ONE of the following: *Sequential Compression Device (SCD) *Heparin 5000 units SQ BID 3-4 Higher Order ONE of the following medications: *Heparin 5000 units SQ TID *Enoxaparin/Lovenox 40 mg SQ daily (WT < 150 kg, CrCl > 30 mL/min) *Enoxaparin/Lovenox 30 mg SQ daily (WT < 150 kg, CrCl > 10-29 mL/min) *Enoxaparin/Lovenox 30 mg SQ BID (WT < 150 kg, CrCl > 30 mL/min) AND/OR *Sequential Compression Device (SCD) 5 or more Highest Order ONE of the following medications: *Heparin 5000 units SQ TID (Preferred with Epidurals) *Enoxaparin/Lovenox 40 mg SQ daily (WT < 150 kg, CrCl > 30 mL/min) *Enoxaparin/Lovenox 30 mg SQ daily (WT < 150 kg, CrCl > 10-29 mL/min) *Enoxaparin/Lovenox 30 mg SQ BID (WT < 150 kg, CrCl > 30 mL/min) AND *Sequential Compression Device (SCD) Assessment and Plan - Plan 42-year-old female with Urinary tract infection Status post Rocephin IV x1 in ED, continue with Rocephin 1 g daily pending urine culture Chronic diarrhea after use of antibiotics? Abdominal pain CT abdomen noted and reviewed by me with finding of steatosis otherwise unremarkable C. difficile PCR pending and treat accordingly Gastroenterology consultation as needed for evaluation for possible colonoscopy Lactic acidosis From the above infectious processes versus dehydration Continue with IV fluid hydration Transaminitis Likely secondary to liver disease due to alcohol abuse; however will check hepatitis profile Monitor LFTs Alcohol abuse Alcohol counseling cessation provided Start CIWA protocol, rally pack and Librium as needed Tobacco abuse Tobacco counseling cessation provided Start nicotine patch
[2018-07-09] MEDS: Gabapentin 300 MG Capsule PO SCH ×3 (10:35→17:52)
[2018-07-09] MEDS: Sod Chloride 0.9% Inj 1,000 ML IV.CONT SCH ×2 (10:35→17:55)
[2018-07-09 11:36] LABS: Hepatitits B Surface Antigen Nonreactive (Nonreactive)
[2018-07-09] MEDS: LORazepam 1 MG Tablet PO PRN ×3 (11:39→22:17)
[2018-07-09] MEDS: Lactobacillus Acidophilus/L. Spores Tablet PO SCH ×2 (11:48→21:00)
[2018-07-09 12:09] LABS: Hepatitis A IgM Antibody Nonreactive (Nonreactive)
[2018-07-10] MEDS: LORazepam 1 MG Tablet PO PRN ×3 (05:41→22:16)
[2018-07-10] MEDS: Sod Chloride 0.9% Inj 1,000 ML IV.CONT SCH ×2 (06:05→17:49)
[2018-07-10 06:57] LABS: Baso % (Auto) 0.8 % (0.0-2.0); Eos # (Auto) 0.2 th/mm3 (0.0-0.4); Eos % (Auto) 3.9 % (0.0-4.0); Hematocrit 42.8 % (35.0-46.0); Hemoglobin 14.3 gm/dL (11.6-15.3); Lymph # (Auto) 1.2 th/mm3 (1.0-4.8); Lymph % (Auto) 23.5 % (9.0-44.0); Mean Corpuscular HGB Conc 33.5 % (32.0-36.0); Mean Corpuscular Hemoglobin 32.5 pg (27.0-34.0); Mean Corpuscular Volume 97.1 fL (80.0-100.0); Mean Platelet Volume 8.7 fL (7.0-11.0); Mono # (Auto) 0.4 th/mm3 (0.0-0.9); Mono % (Auto) 7.4 % (0.0-8.0); Neut # (Auto) 3.2 th/mm3 (1.8-7.7); Neut % (Auto) 64.4 % (16.0-70.0); Platelet Count 184 th/mm3 (150-450); Red Blood Count 4.41 mil/mm3 (4.00-5.30); Red Cell Distribution Width 13.3 % (11.6-17.2); White Blood Count 4.9 th/mm3 (4.0-11.0)
[2018-07-10 07:38] LABS: Alanine Aminotransferase 251 U/L (10-53); Albumin 3.2 g/dL (3.4-5.0); Alkaline Phosphatase 111 U/L (45-117); Anion Gap 8 meq/L (5-15); Aspartate Aminotransferase 270 U/L (15-37); Blood Urea Nitrogen 3 mg/dL (7-18); Carbon Dioxide 23.8 meq/L (21.0-32.0); Chloride 110 meq/L (98-107); Glomerular Filtration Rate Greater Than 89 mL/min (>89); Glucose,Random 105 mg/dL (74-106); Potassium 3.4 meq/L (3.5-5.1); Sodium 142 meq/L (136-145); Total Protein 6.1 g/dL (6.4-8.2)
[2018-07-10] MEDS: Gabapentin 300 MG Capsule PO SCH ×3 (09:21→19:25)
[2018-07-10] MEDS: Lactobacillus Acidophilus/L. Spores Tablet PO SCH ×2 (09:21→22:01)
[2018-07-10] MEDS ORDERED: Potassium Chloride 25 MEQ Effervescent Tablet PO ONE (09:50)
--- NOTE | 2018-07-10 10:29 | P.PNIM ---
Subjective Interval history: cc: follow up diarrhea, diffuse generalized abdominal pain, urinary retention Patient reports persistent diarrhea with 3 episodes so far today. Diffuse, generalized, mild abdominal discomfort. Denies suprapubic pain. Patient with history of hysterectomy and urinary retention. No nausea or vomiting. Feels anxious and expresses concern over her increased alcohol use to control chronic neck and back pain. Patient verbalizes awareness of excessive alcohol use and is wanting to stop. She is planning on following up with her PCP for alternate options to chronic pain management. Currently experiencing headache. Physical Exam Vital signs: Last Vital Signs Temp 98.2 F 07/10/18 07:40 Pulse 76 07/10/18 07:40 Resp 18 07/10/18 07:40 BP 137/90 07/10/18 07:40 Pulse Ox 95 07/10/18 07:40 Intake & Output 07/08/18 07/09/18 07/10/18 07/11/18 06:59 06:59 06:59 06:59 Intake Total 1100 / 1100 3250 / 3250 Balance 1100 / 1100 3250 / 3250 Weight 74.843 kg Constitutional mild distress Routine HEENT Exam Head: Present normocephalic and atraumatic Eye: Present EOMI and PERRL ENT: Present mucous membranes moist Routine Neck Exam Present supple; Absent tracheal deviation Routine Chest/Breast/Axilla Exam Chest wall: Absent tenderness Routine Respiratory Exam Present CTA bilaterally; Absent accessory muscle use and wheezes Routine Cardiovascular Exam Present RRR, S1 and S2 Routine Abdominal Exam Present soft and tenderness; Absent distended Comments: diffuse, generalized Routine Extremities Exam Present full ROM; Absent edema Routine Skin Exam Present intact Routine Neurological Exam Present alert and oriented X3 Routine Psychiatric Exam Present anxious Urinary Catheter Management Indwelling Urethral Catheter: Cath placed during this visit: yes Urethral indwelling: Yes Reason for continuing: Acute urinary retention Insertion date: 07/09/18 Insertion time: 18:45 Results Labs CBC & Chem 7: 07/10/18 06:30 07/10/18 06:30 Labs: Microbiology 07/09/18 21:35 Stool Stool for WBCs - Final Few WBC's Assessment and Plan (1) Urinary tract infection: Code(s): N39.0 - Urinary tract infection, site not specified Status: Acute -- likely secondary to urinary retention -- follow pending urineculture, blood culture with NGTD -- continue IV Rocephin (2) C. difficile colitis: Code(s): A04.72 - Enterocolitis due to Clostridium difficile, not specified as recurrent Status: Suspected -- pt complains of diffuse, generalized abdominal tenderness and 3 episodes of liquid diarrhea since midnight -- CT abdomen/pelvis with no acute process -- history of alcohol use disorder and symptoms may be 2/2 withdrawal -- C-diff Ag and DNA amp positive, however, toxin (-) -- check stool culture -- continue PO Vanc, continue to monitor s/s, d/c once ruled out (3) Urinary retention with incomplete bladder emptying: Code(s): R33.9 - Retention of urine, unspecified Status: Acute -- acute on chronic -- harvey catheter inserted 07/09/18 -- we will attempt voiding trial with post void residual check -- continue treatment for UTI -- pt advised to follow up with PCP post discharge for continued evaluation and management (4) Hypokalemia: Code(s): E87.6 - Hypokalemia Status: Acute -- will replete PO -- monitor electrolytes closely in setting of diarrhea -- repeat BMP in am (5) Alcohol use disorder: Status: Acute -- CIRI protocol -- monitor and replete electrolytes if indicated -- encouraged cessation -- CM consult to assist with resources -- MVI, thiamine, folic acid daily during inpatient stay (6) Transaminitis: Code(s): R74.0 - Nonspecific elevation of levels of transaminase and lactic acid dehydrogenase [LDH] Status: Acute -- in setting of alcohol use disorder AST > ALT -- normal alk phos, total bili elevated at 1.5 -- CT abdomen/pelvis consistent with hepatic steatosis, s/p cholecystectomy -- acute hep panel (-) -- pt will need continued outpatient follow up (7) Lactic acidosis: Code(s): E87.2 - Acidosis Status: Acute -- repeat lactic acid level pending (8) Tobacco use: Code(s): Z72.0 - Tobacco use Status: Acute -- encouraged cessation -- continue Nicotine patch Plan Discussed Condition With: Dr Choudhury Discharge Planning: Dispo: home once medically optimized Progress Note: Quality VTE Deep Vein Thrombosis/Pulmonary Embolism Present on Admission: No
--- NOTE | 2018-07-10 11:26 | P.PNIM ---
Physical Exam Vital signs: Last Vital Signs Temp 98.2 F 07/10/18 07:40 Pulse 76 07/10/18 07:40 Resp 18 07/10/18 07:40 BP 137/90 07/10/18 07:40 Pulse Ox 95 07/10/18 07:40 Intake & Output 07/08/18 07/09/18 07/10/18 07/11/18 06:59 06:59 06:59 06:59 Intake Total 1100 / 1100 3250 / 3250 Balance 1100 / 1100 3250 / 3250 Weight 74.843 kg Urinary Catheter Management Indwelling Urethral Catheter: Cath placed during this visit: yes Urethral indwelling: Yes Insertion date: 07/09/18 Insertion time: 18:45 Results Labs CBC & Chem 7: 07/10/18 06:30 07/10/18 06:30 Labs: Microbiology 07/09/18 07:35 Blood - Peripheral Aerobic Blood Culture - Preliminary No growth in 1 day 07/09/18 07:35 Blood - Peripheral Anaerobic Blood Culture - Preliminary No growth in 1 day 07/09/18 07:50 Blood - Peripheral Aerobic Blood Culture - Preliminary No growth in 1 day 07/09/18 07:50 Blood - Peripheral Anaerobic Blood Culture - Preliminary No growth in 1 day 07/09/18 21:35 Stool Stool for WBCs - Final Few WBC's Assessment and Plan (1) Urinary tract infection: Code(s): N39.0 - Urinary tract infection, site not specified Status: Acute -- likely secondary to urinary retention -- follow pending urine cutlure, blood culture w/ NGTD -- continue IV Rocephin -- continue IVF (2) C. difficile colitis: Code(s): A04.72 - Enterocolitis due to Clostridium difficile, not specified as recurrent Status: Suspected -- pt complains of diffuse, generalized abdominal tenderness and 3 episodes of liquid diarrhea since midnight -- also with history of alcohol use disorder and symptoms may be 2/2 withdrawal -- C-diff Ag and DNA amp positive, however, toxin (-) -- check stool culture (3) Urinary retention with incomplete bladder emptying: Code(s): R33.9 - Retention of urine, unspecified Status: Acute -- acute on chronic -- harvey catheter inserted 07/09/18 -- we will attempt voiding trial with post void residual check -- continue treatment for UTI (4) Hypokalemia: Code(s): E87.6 - Hypokalemia Status: Acute -- will replete PO -- monitor electrolytes closely in setting of diarrhea -- repeat BMP in am (5) Alcohol use disorder: Status: Acute -- [facility] protocol -- monitor and replete electrolytes if indicated -- encouraged cessation -- CM consult to assist with resources -- MVI, thiamine, folic acid daily during inpatient stay (6) Transaminitis: Code(s): R74.0 - Nonspecific elevation of levels of transaminase and lactic acid dehydrogenase [LDH] Status: Acute -- in setting of alcohol use disorder AST > ALT -- normal alk phos, total bili elevated at 1.5 Progress Note: Quality VTE Deep Vein Thrombosis/Pulmonary Embolism Present on Admission: No
[2018-07-11] MEDS: Sod Chloride 0.9% Inj 1,000 ML IV.CONT SCH ×3 (03:32→20:56)
[2018-07-11] MEDS: LORazepam 1 MG Tablet PO PRN ×5 (03:38→20:51)
[2018-07-11 08:02] LABS: Alanine Aminotransferase 169 U/L (10-53); Albumin 2.6 g/dL (3.4-5.0); Alkaline Phosphatase 87 U/L (45-117); Anion Gap 6 meq/L (5-15); Aspartate Aminotransferase 120 U/L (15-37); Calcium 6.8 mg/dL (8.5-10.1); Carbon Dioxide 27.3 meq/L (21.0-32.0); Chloride 110 meq/L (98-107); Glomerular Filtration Rate Greater Than 89 mL/min (>89); Glucose,Random 86 mg/dL (74-106); Potassium 3.4 meq/L (3.5-5.1); Sodium 143 meq/L (136-145); Total Protein 5.3 g/dL (6.4-8.2)
[2018-07-11] MEDS: Lactobacillus Acidophilus/L. Spores Tablet PO SCH ×2 (08:04→20:50)
[2018-07-11] MEDS: Gabapentin 300 MG Capsule PO SCH ×3 (08:04→18:01)
[2018-07-11 10:53] LABS: Baso % (Auto) 0.9 % (0.0-2.0); Eos # (Auto) 0.3 th/mm3 (0.0-0.4); Eos % (Auto) 5.2 % (0.0-4.0); Hematocrit 42.4 % (35.0-46.0); Hemoglobin 14.3 gm/dL (11.6-15.3); Lymph # (Auto) 1.6 th/mm3 (1.0-4.8); Lymph % (Auto) 30.9 % (9.0-44.0); Mean Corpuscular HGB Conc 33.7 % (32.0-36.0); Mean Corpuscular Volume 97.8 fL (80.0-100.0); Mean Platelet Volume 9.6 fL (7.0-11.0); Mono # (Auto) 0.3 th/mm3 (0.0-0.9); Mono % (Auto) 5.5 % (0.0-8.0); Neut # (Auto) 2.9 th/mm3 (1.8-7.7); Neut % (Auto) 57.5 % (16.0-70.0); Platelet Count 160 th/mm3 (150-450); Red Blood Count 4.34 mil/mm3 (4.00-5.30); Red Cell Distribution Width 13.7 % (11.6-17.2); White Blood Count 5.1 th/mm3 (4.0-11.0)
--- NOTE | 2018-07-11 13:09 | P.PN ---
Subjective Interval history: Follow-up UTI/C. difficile colitis/alcohol abuse July 11, 2018-patient seen and examined,CIWA of 8-10 Physical Exam Vital signs: Vital Signs 07/10/18 16:00 07/10/18 20:00 07/11/18 00:00 Temperature 98.4 F 97.8 F 97.4 F L Pulse Rate 82 82 78 Respiratory Rate 20 17 Blood Pressure 153/103 H 139/98 H Pulse Oximetry 82 L 100 07/11/18 08:00 07/11/18 12:00 Temperature 97.9 F 97.0 F L Pulse Rate 77 65 Respiratory Rate 17 18 Blood Pressure 118/86 123/82 Pulse Oximetry 98 97 Intake & Output 07/10/18 07/11/18 07/11/18 18:59 06:59 18:59 Intake Total 100 / 100 4000 / 4000 800 / 800 Output Total 1000 / 1000 2375 / 2375 Balance -900 / -900 4000 / 4000 -1575 / -1575 Weight 87.4 kg 87.4 kg Intake: IV 100 / 100 800 / 800 NS Inj 1,000 ML @ 100 mls/hr IV 700 / 700 .CONT .Q10H D[facility] Rx#:[id number] Rocephin Inj 1,000 MG In NS Inj 100 / 100 100 / 100 100 ML @ 200 mls/hr IV.SIG Q24H DARE[facility] Rx#:[id number] Oral 4000 / 4000 Output: Urine Amount (Catheter) 1000 / 1000 2375 / 2375 Indwelling Urethral Catheter 1000 / 1000 2375 / 2375 Other: Date of Last Bowel Movement 07/10/18 07/11/18 # Bowel Movements 4 Weight On Admission 87.4 kg Narrative: GENERAL: NAD SKIN: Warm and dry. HEAD: Atraumatic. Normocephalic. EYES: Pupils equal and round. No scleral icterus. No injection or drainage. ENT: No nasal bleeding or discharge. Mucous membranes pink and moist. NECK: Trachea midline. No JVD. CARDIOVASCULAR: Regular rate and rhythm. RESPIRATORY: No accessory muscle use. Clear to auscultation. Breath sounds equal bilaterally. GASTROINTESTINAL: Abdomen soft, non-tender, nondistended. Hepatic and splenic margins not palpable. MUSCULOSKELETAL: Extremities without clubbing, cyanosis, or edema. No obvious deformities. NEUROLOGICAL: Awake and alert. No obvious cranial nerve deficits. Motor grossly within normal limits. Five out of 5 muscle strength in the arms and legs. Normal speech. PSYCHIATRIC: Appropriate mood and affect; insight and judgment normal. - Urinary Catheter Management Indwelling Urethral Catheter Cath placed during this visit: yes, but has since been removed by the nurse Urethral indwelling: Yes Reason for continuing: Decision to DC catheter Insertion date: 07/09/18 Insertion time: 18:45 Removal date: 07/11/18 Removal time: 11:36 Results - Labs CBC & Chem 7: 07/11/18 08:52 07/11/18 06:58 Laboratory Results - last 24 hr 07/09/18 07/10/18 07/10/18 05:00 15:55 17:47 WBC RBC Hgb Hct MCV MCH MCHC RDW Plt Count MPV Neut % (Auto) Lymph % (Auto) Elliott % (Auto) Eos % (Auto) Baso % (Auto) Neut # (Auto) Lymph # (Auto) Elliott # (Auto) Eos # (Auto) Baso # (Auto) WBC Differential Differential Comment Sodium Potassium Chloride Carbon Dioxide Anion Gap BUN Creatinine Estimated GFR POC Glucose 102 Random Glucose Lactic Acid 1.9 Calcium Prot Corrected Calcium Total Bilirubin AST ALT Alkaline Phosphatase Total Protein Albumin Urine Color Yellow Urine Clarity Cloudy H Urine pH 6.0 Ur Specific [place] 1.006 Urine Protein Negative Urine Glucose (UA) Negative Urine Ketones Negative Urine Occult Blood Small H Urine Nitrate Positive H Urine Bilirubin Negative Urine Urobilinogen Less than 2 Ur Leukocyte Esterase Large H Urine RBC 2 Urine WBC 5 Ur Squamous Epith Cells 10 Urine Bacteria Many H Urine Mucus Few H Urine Yeast Few H Micro UA Comment Culture indicated Urine Culture Comments Culture indicated 07/11/18 07/11/18 06:58 08:52 WBC 5.1 RBC 4.34 Hgb 14.3 Hct 42.4 MCV 97.8 MCH 33.0 MCHC 33.7 RDW 13.7 Plt Count 160 MPV 9.6 Neut % (Auto) 57.5 Lymph % (Auto) 30.9 Elliott % (Auto) 5.5 Eos % (Auto) 5.2 H Baso % (Auto) 0.9 Neut # (Auto) 2.9 Lymph # (Auto) 1.6 Elliott # (Auto) 0.3 Eos # (Auto) 0.3 Baso # (Auto) 0.0 WBC Differential . Differential Comment Auto diff final Sodium 143 Potassium 3.4 L Chloride 110 H Carbon Dioxide 27.3 Anion Gap 6 BUN Less than 1 L Creatinine 0.51 Estimated GFR Greater than 89 POC Glucose Random Glucose 86 Lactic Acid Calcium 6.8 L* Prot Corrected Calcium 7.7 L Total Bilirubin 0.7 AST 120 H ALT 169 H Alkaline Phosphatase 87 Total Protein 5.3 L D Albumin 2.6 L D Urine Color Urine Clarity Urine pH Ur Specific [place] Urine Protein Urine Glucose (UA) Urine Ketones Urine Occult Blood Urine Nitrate Urine Bilirubin Urine Urobilinogen Ur Leukocyte Esterase Urine RBC Urine WBC Ur Squamous Epith Cells Urine Bacteria Urine Mucus Urine Yeast Micro UA Comment Urine Culture Comments Microbiology 07/09/18 07:35 Blood - Peripheral Aerobic Blood Culture - Preliminary No growth in 2 days 07/09/18 07:35 Blood - Peripheral Anaerobic Blood Culture - Preliminary No growth in 2 days 07/09/18 07:50 Blood - Peripheral Aerobic Blood Culture - Preliminary No growth in 2 days 07/09/18 07:50 Blood - Peripheral Anaerobic Blood Culture - Preliminary No growth in 2 days 07/09/18 05:00 Clean Catch Urine Urine Culture - Final Escherichia coli 07/09/18 21:35 Stool Enteric Pathogens (PCR) - Final No enteric pathogens detected by PCR (No Salmonella sp., Shigella sp., Campylobacter sp., Yersinia enterocolitica, Vibrio sp., Norovirus, or EHEC (Shiga Toxin 1 or Shiga Toxin 2) detected. 07/09/18 21:35 Stool Stool for WBCs - Final Few WBC's Assessment and Plan - Assessment (1) Urinary tract infection Code(s): N39.0 - Urinary tract infection, site not specified Status: Acute Plan: -- likely secondary to urinary retention -- follow pending urineculture, blood culture with NGTD -- continue IV Rocephin (2) C. difficile colitis Code(s): A04.72 - Enterocolitis due to Clostridium difficile, not specified as recurrent Status: Suspected Plan: -- pt complains of diffuse, generalized abdominal tenderness and 3 episodes of liquid diarrhea since midnight -- CT abdomen/pelvis with no acute process -- history of alcohol use disorder and symptoms may be 2/2 withdrawal -- C-diff Ag and DNA amp positive, however, toxin (-) -- check stool culture -- continue PO Vanc, continue to monitor s/s, d/c once ruled out (3) Urinary retention with incomplete bladder emptying Code(s): R33.9 - Retention of urine, unspecified Status: Acute Plan: -- acute on chronic -- harvey catheter inserted 07/09/18 -- we will attempt voiding trial with post void residual check -- continue treatment for UTI -- pt advised to follow up with PCP post discharge for continued evaluation and management (4) Hypokalemia Code(s): E87.6 - Hypokalemia Status: Acute Plan: -- will replete PO -- monitor electrolytes closely in setting of diarrhea -- repeat BMP in am (5) Alcohol use disorder Status: Acute Plan: -- [facility] protocol -- monitor and replete electrolytes if indicated -- encouraged cessation -- CM consult to assist with resources -- MVI, thiamine, folic acid daily during inpatient stay (6) Transaminitis Code(s): R74.0 - Nonspecific elevation of levels of transaminase and lactic acid dehydrogenase [LDH] Status: Acute Plan: -- in setting of alcohol use disorder AST > ALT -- normal alk phos, total bili elevated at 1.5 -- CT abdomen/pelvis consistent with hepatic steatosis, s/p cholecystectomy -- acute hep panel (-) -- pt will need continued outpatient follow up (7) Lactic acidosis Code(s): E87.2 - Acidosis Status: Acute Plan: -- repeat lactic acid level pending (8) Tobacco use Code(s): Z72.0 - Tobacco use Status: Acute Plan: -- encouraged cessation -- continue Nicotine patch - Plan 42-year-old female with Urinary tract infection Currently on Rocephin, and will switch to p.o. Cipro C. difficile colitis Abdominal pain CT abdomen with finding of steatosis otherwise unremarkable Currently on vancomycin p.o. Gastroenterology consultation as needed for evaluation for possible colonoscopy Lactic acidosis-resolved From the above infectious processes versus dehydration Continue with IV fluid hydration Transaminitis Likely secondary to liver disease due to alcohol abuse; however will check hepatitis profile Monitor LFTs Alcohol abuse Alcohol counseling cessation provided Continue with [facility] protocol, rally pack and Librium as needed Urinary retention Voiding trial, ROMULO Harvey Tobacco abuse Tobacco counseling cessation provided On nicotine patch
[2018-07-11] MEDS: Ciprofloxacin 500 MG Tablet PO SCH (20:50)
[2018-07-12] MEDS: Sod Chloride 0.9% Inj 1,000 ML IV.CONT SCH (05:47)
[2018-07-12] MEDS: LORazepam 1 MG Tablet PO PRN ×2 (05:49→09:52)
[2018-07-12] MEDS: Lactobacillus Acidophilus/L. Spores Tablet PO SCH (09:39)
[2018-07-12] MEDS: Ciprofloxacin 500 MG Tablet PO SCH (09:39)
[2018-07-12] MEDS: Gabapentin 300 MG Capsule PO SCH ×3 (09:39→17:21)
[2018-07-12 09:44] VITALS: RESP 20
--- NOTE | 2018-07-12 12:57 | P.PN ---
Subjective Interval history: no complains taking po well voiding well denies any diarrhea she is very motivated with alcohol cessation she got good support and plans on going back to [facility] Physical Exam Vital signs: Vital Signs 07/11/18 16:00 07/11/18 20:00 07/11/18 23:57 Temperature 95.1 F L 97.4 F L 97.3 F L Pulse Rate 84 83 69 Respiratory Rate 19 17 18 Blood Pressure 136/95 H 135/89 139/92 H Pulse Oximetry 99 98 98 07/12/18 08:00 Temperature 98.4 F Pulse Rate 72 Respiratory Rate 20 Blood Pressure 122/68 Pulse Oximetry 100 Intake & Output 07/11/18 07/12/18 07/12/18 18:59 06:59 18:59 Intake Total 800 / 800 2500 / 2500 Output Total 3275 / 3275 Balance -2475 / -2475 2500 / 2500 Weight 87.4 kg 87.4 kg Intake: IV 800 / 800 1900 / 1900 NS Inj 1,000 ML @ 100 mls/hr IV 700 / 700 1900 / 1900 .CONT .Q10H [facility] Rx#:[id number] Rocephin Inj 1,000 MG In NS Inj 100 / 100 100 ML @ 200 mls/hr IV.SIG Q24H DARELL Rx#:[id number] Oral 600 / 600 Output: Urine 900 / 900 Urine Amount (Catheter) 2375 / 2375 Indwelling Urethral Catheter 2375 / 2375 Other: # Voids 3 Date of Last Bowel Movement 07/11/18 # Bowel Movements 1 Narrative: GENERAL: NAD, no tremors SKIN: Warm and dry. HEAD: Atraumatic. Normocephalic. EYES: Pupils equal and round. No scleral icterus. No injection or drainage. ENT: No nasal bleeding or discharge. Mucous membranes pink and moist. NECK: Trachea midline. No JVD. CARDIOVASCULAR: Regular rate and rhythm. RESPIRATORY: No accessory muscle use. Clear to auscultation. Breath sounds equal bilaterally. GASTROINTESTINAL: Abdomen soft, non-tender, nondistended. Hepatic and splenic margins not palpable. MUSCULOSKELETAL: Extremities without clubbing, cyanosis, or edema. No obvious deformities. NEUROLOGICAL: Awake and alert. No obvious cranial nerve deficits. Motor grossly within normal limits. Five out of 5 muscle strength in the arms and legs. Normal speech. PSYCHIATRIC: Appropriate mood and affect; insight and judgment normal. - Urinary Catheter Management Indwelling Urethral Catheter Cath placed during this visit: yes, but has since been removed by the nurse Urethral indwelling: Yes Reason for continuing: Decision to DC catheter Insertion date: 07/09/18 Insertion time: 18:45 Removal date: 07/11/18 Removal time: 11:36 Results - Labs CBC & Chem 7: 07/11/18 08:52 07/11/18 06:58 Microbiology 07/09/18 07:35 Blood - Peripheral Aerobic Blood Culture - Preliminary No growth in 3 days 07/09/18 07:35 Blood - Peripheral Anaerobic Blood Culture - Preliminary No growth in 3 days 07/09/18 07:50 Blood - Peripheral Aerobic Blood Culture - Preliminary No growth in 3 days 07/09/18 07:50 Blood - Peripheral Anaerobic Blood Culture - Preliminary No growth in 3 days 07/09/18 05:00 Clean Catch Urine Urine Culture - Final Escherichia coli Assessment and Plan - Assessment (1) Urinary tract infection Code(s): N39.0 - Urinary tract infection, site not specified Status: Acute Plan: -- likely secondary to urinary retention -- follow pending urineculture, blood culture with NGTD -- continue IV Rocephin (2) C. difficile colitis Code(s): A04.72 - Enterocolitis due to Clostridium difficile, not specified as recurrent Status: Suspected Plan: -- pt complains of diffuse, generalized abdominal tenderness and 3 episodes of liquid diarrhea since midnight -- CT abdomen/pelvis with no acute process -- history of alcohol use disorder and symptoms may be 2/2 withdrawal -- C-diff Ag and DNA amp positive, however, toxin (-) -- check stool culture -- continue PO Vanc, continue to monitor s/s, d/c once ruled out (3) Urinary retention with incomplete bladder emptying Code(s): R33.9 - Retention of urine, unspecified Status: Acute Plan: -- acute on chronic -- harvey catheter inserted 07/09/18 -- we will attempt voiding trial with post void residual check -- continue treatment for UTI -- pt advised to follow up with PCP post discharge for continued evaluation and management (4) Hypokalemia Code(s): E87.6 - Hypokalemia Status: Acute Plan: -- will replete PO -- monitor electrolytes closely in setting of diarrhea -- repeat BMP in am (5) Alcohol use disorder Status: Acute Plan: -- CIWA protocol -- monitor and replete electrolytes if indicated -- encouraged cessation -- CM consult to assist with resources -- MVI, thiamine, folic acid daily during inpatient stay (6) Transaminitis Code(s): R74.0 - Nonspecific elevation of levels of transaminase and lactic acid dehydrogenase [LDH] Status: Acute Plan: -- in setting of alcohol use disorder AST > ALT -- normal alk phos, total bili elevated at 1.5 -- CT abdomen/pelvis consistent with hepatic steatosis, s/p cholecystectomy -- acute hep panel (-) -- pt will need continued outpatient follow up (7) Lactic acidosis Code(s): E87.2 - Acidosis Status: Acute Plan: -- repeat lactic acid level pending (8) Tobacco use Code(s): Z72.0 - Tobacco use Status: Acute Plan: -- encouraged cessation -- continue Nicotine patch - Plan 42 years old female (1) Urinary tract infection- E coli Code(s): N39.0 - Urinary tract infection, site not specified Status: Acute Plan: -- likely secondary to urinary retention - on ciprofloxacin 500 mg bid (2) C. difficile colitis Code(s): A04.72 - Enterocolitis due to Clostridium difficile, not specified as recurrent Status: Suspected Plan: -- pt complains of diffuse, generalized abdominal tenderness and 3 episodes of liquid diarrhea since midnight -- CT abdomen/pelvis with no acute process -- history of alcohol use disorder and symptoms may be 2/2 withdrawal -- C-diff Ag and DNA amp positive, however, toxin (-) -- check stool culture -- continue PO Vanc, continue to monitor s/s, d/c once ruled out total 10 days (3) Urinary retention with incomplete bladder emptying- resolved Code(s): R33.9 - Retention of urine, unspecified Status: Acute Plan: -- acute on chronic -- harvey catheter inserted 07/09/18 -- we will attempt voiding trial with post void residual check -- continue treatment for UTI -- pt advised to follow up with PCP post discharge for continued evaluation and management (4) Hypokalemia Code(s): E87.6 - Hypokalemia Status: Acute Plan: -- will replete PO -- monitor electrolytes closely in setting of diarrhea -- repeat BMP in am (5) Alcohol use disorder- Improved Status: Acute Plan: -- on CIWA -- encouraged cessation -- CM consult to assist with resources -- MVI, thiamine, folic acid daily during inpatient stay - start po ibrium 10 mg po tid (6) Transaminitis Code(s): R74.0 - Nonspecific elevation of levels of transaminase and lactic acid dehydrogenase [LDH] Status: Acute Plan: -- in setting of alcohol use disorder AST > ALT -- normal alk phos, total bili elevated at 1.5 -- CT abdomen/pelvis consistent with hepatic steatosis, s/p cholecystectomy -- acute hep panel (-) -- pt will need continued outpatient follow up - LFTs trending down- counselling extensively (7) Lactic acidosis Code(s): E87.2 - Acidosis Status: Acute Plan: -- repeat lactic acid level normal (8) Tobacco use Code(s): Z72.0 - Tobacco use Status: Acute Plan: -- encouraged cessation -- continue Nicotine patch - Plan
--- NOTE | 2018-07-12 13:32 | P.DS ---
Date of admission: 07/09/18 07:55 Primary care physician: UNKNOWN Anticipated date of discharge: 07/12/18 Brief History from admission: 42-year-old female presented to the ED for evaluation of worsening abdominal pain and diarrhea 5-6 times a day. Patient states over the past 5-6 months after receiving treatment with various antibiotics she has been having consistently abdominal distention and diarrhea. However, patient states she has not receiving antibiotics recently. She also reports urinary frequency, dysuria. She denies any febrile episode. Patient's admits drinking 1 pint of alcohol daily, and smokes half a pack of cigarettes. In the ED, CT abdomen revealed hepatic steatosis otherwise unremarkable. Abnormal lab include elevated lactic acid. She denies any GI bleed. Patient update on day of discharge: moptovated with lifestyle changes no diarrhea no voiding difficulties DS: Diagnosis - Discharge Diagnosis (1) Urinary tract infection Status: Acute (2) C. difficile colitis Status: Suspected (3) Urinary retention with incomplete bladder emptying Status: Acute (4) Hypokalemia Status: Acute (5) Alcohol use disorder Status: Acute (6) Transaminitis Status: Acute (7) Lactic acidosis Status: Acute (8) Tobacco use Status: Acute DS: Summary Hospital Course: 42 years old female (1) Urinary tract infection- E coli Code(s): N39.0 - Urinary tract infection, site not specified Status: Acute Plan: -- likely secondary to urinary retention - on ciprofloxacin 500 mg bid (2) C. difficile colitis Code(s): A04.72 - Enterocolitis due to Clostridium difficile, not specified as recurrent Status: Suspected Plan: -- CT abdomen/pelvis with no acute process -- history of alcohol use disorder and symptoms may be 2/2 withdrawal -- C-diff Ag and DNA amp positive, however, toxin (-) --stool culture- negative for enteric pathogen -- continue PO Vanc, (3) Urinary retention with incomplete bladder emptying- resolved Code(s): R33.9 - Retention of urine, unspecified Status: Acute Plan: -- acute on chronic -- harvey catheter inserted 07/09/18- removed 07/11, voiding -- continue treatment for UTI -- pt advised to follow up with PCP post discharge for continued evaluation and management (4) Hypokalemia Code(s): E87.6 - Hypokalemia Status: Acute Plan: -- replete PO. (5) Alcohol use disorder- Improved Status: Acute Plan: -- on CIWA -- CM consult to assist with resources -- MVI, thiamine, folic acid daily during inpatient stay - LFTs trending down- counselled extensively on cessation - po Librium 10 mg po tid - Time Spent with Patient Total time spent providing and/or coordinating discharge services: Greater than 30 minutes - Quality: VTE Deep Vein Thrombosis/Pulmonary Embolism Present on Admission: No Exam Vital signs: Vital Signs 07/11/18 16:00 07/11/18 20:00 07/11/18 23:57 Temperature 95.1 F L 97.4 F L 97.3 F L Pulse Rate 84 83 69 Respiratory Rate 19 17 18 Blood Pressure 136/95 H 135/89 139/92 H Pulse Oximetry 99 98 98 07/12/18 08:00 Temperature 98.4 F Pulse Rate 72 Respiratory Rate 20 Blood Pressure 122/68 Pulse Oximetry 100 Intake & Output 07/11/18 07/12/18 07/12/18 18:59 06:59 18:59 Intake Total 800 / 800 2500 / 2500 Output Total 3275 / 3275 Balance -2475 / -2475 2500 / 2500 Weight 87.4 kg 87.4 kg Intake: IV 800 / 800 1900 / 1900 NS Inj 1,000 ML @ 100 mls/hr IV 700 / 700 1900 / 1900 .CONT .Q10H [facility] Rx#:[id number] Rocephin Inj 1,000 MG In NS Inj 100 / 100 100 ML @ 200 mls/hr IV.SIG Q24H DARELL Rx#:[id number] Oral 600 / 600 Output: Urine 900 / 900 Urine Amount (Catheter) 2375 / 2375 Indwelling Urethral Catheter 2375 / 2375 Other: # Voids 3 Date of Last Bowel Movement 07/11/18 # Bowel Movements 1 Narrative: GENERAL: NAD, no tremors SKIN: Warm and dry. HEAD: Atraumatic. Normocephalic. EYES: Pupils equal and round. No scleral icterus. No injection or drainage. CARDIOVASCULAR: Regular rate and rhythm. RESPIRATORY: No accessory muscle use. Clear to auscultation. Breath sounds equal bilaterally. GASTROINTESTINAL: Abdomen soft, non-tender, nondistended. Hepatic and splenic margins not palpable. MUSCULOSKELETAL: Extremities without clubbing, cyanosis, or edema. No obvious deformities. NEUROLOGICAL: Awake and alert. No obvious cranial nerve deficits. Motor grossly within normal limits. Five out of 5 muscle strength in the arms and legs. Normal speech. PSYCHIATRIC: Appropriate mood and affect; insight and judgment normal. Results Procedures completed during hospitalization: none Labs on day of discharge: Preliminary micro results at discharge 07/09/18 07:35 Aerobic Blood Culture - Preliminary Blood - Peripheral No growth in 3 days Anaerobic Blood Culture - Preliminary No growth in 3 days 07/09/18 07:50 Aerobic Blood Culture - Preliminary Blood - Peripheral No growth in 3 days Anaerobic Blood Culture - Preliminary No growth in 3 days - Impressions ITS Impressions Abdomen/Pelvis CT 07/09/18 04:44 CONCLUSION: 1. Prominent hepatic steatosis. 2. No acute findings in the abdomen and pelvis. Chest X-Ray 07/09/18 06:39 CONCLUSION: No acute cardiopulmonary disease identified. Discharge Plan - Discharge Disposition Patient Disposition: 01 Discharge Home - Discharge Condition Condition: Stable - Discharge Order Discharge Orders: Discharge Order (Routine); Ordered 07/12/18 Ordered By: Blanche Lamb - Discharge Details Anticipated Discharge Date: 07/12/18 - Physicians Team Primary Care Provider: UNKNOWN, Attending Provider: Blanche Lamb
[2018-07-12 16:22] VITALS: BP 160/89; PULSE 75; TEMP 97.2; O2SAT 99
== END 2018-07-12 17:36 | disposition home or self-care (01) ==
LOC: NEPE 02:41 → NEDA 07:55 → OBSVTOIN 07:55 → INTOOBSV 07:55 → NEDA 11:19 → NEPHCDU 11:31 → N07 07-10 12:04
PROVIDERS: ADMIT Internal Medicine; ATTEND Internal Medicine
DX: M54.2 Cervicalgia; K76.0 Fatty (change of) liver, not elsewhere classified; A04.72 Enterocolitis due to Clostridium difficile, not specified as recurrent; K70.9 Alcoholic liver disease, unspecified; G89.29 Other chronic pain; F17.210 Nicotine dependence, cigarettes, uncomplicated; E87.2 Acidosis; E87.6 Hypokalemia; Z90.49 Acquired absence of other specified parts of digestive tract; N39.0 Urinary tract infection, site not specified; Z83.3 Family history of diabetes mellitus; F10.10 Alcohol abuse, uncomplicated; M54.9 Dorsalgia, unspecified; B96.20 Unspecified Escherichia coli [E. coli] as the cause of diseases classified elsewhere; Z82.49 Family history of ischemic heart disease and other diseases of the circulatory system